=== PATIENT | female | born 1995 | race Hispanic/Latino ===

== ENCOUNTER → 2018-04-11 15:47 | Outpatient (CLI) | payer SELFPAY | DX: Z23 Encounter for immunization (principal) | CPT/HCPCS: 90471; 90686 ==

== ENCOUNTER → 2018-06-20 15:58 | Outpatient (CLI) | payer OTHER, BC, SELFPAY ==
--- NOTE | 2018-06-20 | DI.US.S_ITS ---
PROCEDURE: US OB <= 14 WEEKS FETUS INDICATIONS: SIZING AND DATING OUTSIDE/PRIOR DATING DATA: Last menstrual period (LMP): Not available. LMP-based estimated date of delivery (VALERI): Not available. First dating scan (date and location): This study, 06/20/18. Estimated date of delivery (VALERI) from first dating scan: 01/24/19, plus or -5 days. TECHNIQUE: Real-time scanning was performed of the fetus and maternal pelvic organs, with image documentation. Endovaginal scanning was also performed to better visualize the fetus and maternal ovaries. COMPARISON: None. FINDINGS: Embryo: [place]-rump length of 2.2 cm correlates with a gestational age of 8 weeks 6 days, plus or -5 days. Measurement variability in dating: +/- 4 weeks by LMP, +/- 7 days by mean sac diameter (use before 6 weeks gestation if crown-rump length not able to be measured), +/- 5 days by crown-rump length (up to 8 weeks 6 days gestation), +/- 7 days by crown-rump length (up to 13 weeks 6 days gestation). Maternal organs: Ovaries normal considering gestational status. Limited images through the kidneys demonstrate no hydronephrosis. IMPRESSION: 8 week 6 day gestational age with delivery date projected to be centered on 01/24/19, plus or -5 days. Followup anatomic survey at 21 weeks gestation is recommended. Dictated by: Kamran López M.D. on 06/20/2018 at 16:56 Approved by: Kamran López M.D. on 06/20/2018 at 16:57
== END ==
PROVIDERS: Visit Provider Family Medicine
DX: Z34.90 Encounter for supervision of normal pregnancy, unspecified, unspecified trimester (principal)
CPT/HCPCS: 76801; 76817

== ENCOUNTER → 2018-09-03 08:46 | Outpatient (CLI) | payer OTHER, BC, SELFPAY ==
--- NOTE | 2018-09-03 | DI.US.S_ITS ---
PROCEDURE: US OB >= 14 WEEKS FETUS INDICATIONS: 20 WEEK ANATOMICAL SURVEY OUTSIDE/PRIOR DATING DATA: Last menstrual period (LMP): Unknown. LMP-based estimated date of delivery (VALERI): Unknown First dating scan (date and location): 06/20/18 Estimated date of delivery (VALERI) from first dating scan: 01/24/19. TECHNIQUE: Real-time scanning was performed of the fetus, with image documentation and biometric measurements. A COMPARISON: None. FINDINGS: General: A single living intrauterine gestation is present. Presentation: Variable. Placenta: Placental position is in posterior, without previa. The Amniotic fluid index: 12.3 cm, normal range is 5-24 cm. heart rate: 147 beats per minute. Maternal cervical canal: 3.6 cm long. Normal lower limit is 2.5 cm. biometrics: Biparietal diameter: 4.44 cm, 19 weeks 3 days Head circumference: 16.57 cm, 19 weeks 2 days Abdominal circumference: 15.53 cm, 20 weeks 5 days Femur length: 2.86 cm, 18 weeks 5 days Estimated gestational age from initial scan: not applicable. Composite gestational age from present scan: 19 weeks 3 days Estimated weight and percentile: 311 g, 56% Measurement variability for biometric dating: +/- 7 days from 14 weeks to 15 weeks 6 days gestation, +/- 10 days from 16 weeks to 21 weeks 6 days gestation, +/- 2 weeks from 22 weeks to 27 weeks 6 days gestation, +/- 3 weeks for 28 weeks gestation or later. weight reference: 4500 g or EFW >90/95% is considered macrosomia or large for gestational age. EFW <10% is small for gestational age. EFW 5% or less is considered intra-uterine growth restriction. Anatomic survey: Neuro: Ventricles are non-dilated at less than 10 mm. Cisterna magna is normal at 3-11 mm. Cerebellum is normal in size and morphology. Nuchal skin fold: Normal at less than 6 mm between 14-21 weeks gestational age. Face: Nose and lips, facial profile are normal. Spine: No evidence for spina bifida. Heart: 4-chambered heart is present, with normal ventricular outflow tracts. Diaphragm: Diaphragm is intact. Stomach: Left-sided stomach is present. Kidneys: No hydronephrosis. Normal is less than 5 mm in 2nd trimester, less than 7 mm in 3rd trimester. Cord: 3-vessel cord has orthotopic insertion. Bladder: Normal in size. Extremities: All 4 extremities identified. IMPRESSION: Normal second trimester anatomy scan current ultrasound age within one day of clinical age. . Dictated by: Gerson Quevedo M.D. on 09/03/2018 at 11:31 Approved by: Gerson Quevedo M.D. on 09/03/2018 at 11:48
== END ==
LOC: US 08:54
PROVIDERS: PCP Family Medicine; Visit Provider Family Medicine
DX: Z36.89 Encounter for other specified antenatal screening (principal); Z3A.19 19 weeks gestation of pregnancy
CPT/HCPCS: 76811